=== PATIENT | female | born 1965 | race Caucasian/White ===

== ENCOUNTER 2016-12-09 11:53 | Emergency (ER) | payer OTHER ==
[~2016-12-09] VITALS: Ht 180.3 cm; Wt 120.2 kg
[~2016-12-09 11:53] MED LIST: CLINDAMYCIN HC300 MG PO; NORCO 5-325 TA1 EACH PO; VISTARIL25 M2 PO
[2016-12-09] MEDS ORDERED: NAPROSYN500 MG PO (12:29)
[2016-12-09] MEDS ORDERED: AMOXICILLIN500 M2 PO (12:29)
== END 2016-12-09 13:56 | disposition home or self-care (01) ==
LOC: ED 11:53
DX: K04.7 Periapical abscess without sinus (principal); F17.200 Nicotine dependence, unspecified, uncomplicated; Z98.890 Other specified postprocedural states

== ENCOUNTER 2016-12-11 12:46 | Emergency (ER) | payer OTHER ==
[~2016-12-11] VITALS: Ht 180.3 cm; Wt 117.9 kg
[~2016-12-11 12:46] MED LIST changes: +AMOXICILLIN500 M2 PO; +NAPROSYN500 MG PO
[2016-12-11] MEDS ORDERED: DIFLUCAN150 MG PO (14:11)
[2016-12-11] MEDS ORDERED: PREDNISONE20 M1 PO (14:11)
== END 2016-12-11 14:52 | disposition home or self-care (01) ==
LOC: ED 12:46
DX: B37.3 Candidiasis of vulva and vagina (principal); K08.89 Other specified disorders of teeth and supporting structures; R21 Rash and other nonspecific skin eruption; F17.200 Nicotine dependence, unspecified, uncomplicated

== ENCOUNTER 2017-02-01 19:47 | Emergency (ER) | payer OTHER ==
[~2017-02-01] VITALS: Ht 180.3 cm; Wt 108.9 kg
[~2017-02-01 19:47] MED LIST changes: +DIFLUCAN150 MG PO; +PREDNISONE20 M1 PO
[2017-02-01] MEDS ORDERED: ULTRAM50 MG PO (22:57)
[2017-02-01] MEDS ORDERED: CYCLOBENZAPRINE5 M3 PO (22:57)
== END 2017-02-01 23:43 | disposition home or self-care (01) ==
LOC: ED 19:47
DX: S30.0XXA Contusion of lower back and pelvis, initial encounter (principal); M79.671 Pain in right foot; M79.1 Myalgia; F17.200 Nicotine dependence, unspecified, uncomplicated; W00.2XXA Other fall from one level to another due to ice and snow, initial encounter; Y93.01 Activity, walking, marching and hiking; Y92.524 Gas station as the place of occurrence of the external cause; Y99.8 Other external cause status

== ENCOUNTER 2017-06-01 11:57 | Emergency (ER) | payer OTHER ==
[~2017-06-01] VITALS: Ht 180.3 cm; Wt 113.4 kg
[~2017-06-01 11:57] MED LIST changes: +CYCLOBENZAPRINE5 M3 PO; +ULTRAM50 MG PO
[2017-06-01] MEDS ORDERED: CLARITIN-D 24 H1 TAB PO (12:26)
[2017-06-01] MEDS ORDERED: FLONASE ALLERG9.9 ML NAS (12:26)
== END 2017-06-01 13:16 | disposition home or self-care (01) ==
LOC: ED 11:57
DX: J30.2 Other seasonal allergic rhinitis (principal); Z98.890 Other specified postprocedural states; Z79.899 Other long term (current) drug therapy

== ENCOUNTER 2017-08-17 19:22 | Emergency (ER) | payer OTHER ==
[~2017-08-17] VITALS: Ht 180.3 cm; Wt 117.9 kg
[~2017-08-17 19:22] MED LIST changes: +CLARITIN-D 24 H1 TAB PO; +FLONASE ALLERG9.9 ML NAS
[2017-08-17 20:32] LABS: BASO # 0.1 10*3/uL (0.0-0.1); BASO % 0.8 % (0.0-1.0); EOS # 0.2 10*3/uL (0.0-0.4); EOS % 3.8 % (1.0-4.0); HEMATOCRIT 39.3 % (37.0-47.0); HEMOGLOBIN 13.4 g/dl (12.0-16.0); LYMPH # 2.2 10*3/uL (1.3-4.4); LYMPH % 34.8 % (27.0-41.0); MEAN CELL VOLUME 91.6 fl (81.0-99.0); MEAN CORPUSCULAR HGB 31.2 pg (27.0-31.0); MEAN CORPUSCULAR HGB CONC 34.1 g/dl (33.0-37.0); MEAN PLATELET VOLUME 11.5 fl (9.6-12.3); MONO # 0.4 10*3/uL (0.1-1.0); MONO % 5.5 % (3.0-9.0); NEUT # 3.5 10*3/uL (2.3-7.9); NEUT % 54.9 % (47.0-73.0); PLATELET COUNT AUTOMATED 180 10*3/uL (130-400); RED BLOOD COUNT 4.29 10*6/uL (4.10-5.10); RED CELL DISTRI WIDTH 13.1 % (0-14.5); WHITE BLOOD COUNT 6.3 10*3/uL (4.8-10.8)
[2017-08-17 20:48] LABS: ALBUMIN 3.7 gm/dl (3.1-4.5); ALKALINE PHOSPHATASE 75 U/L (45-117); BUN 16 mg/dl (7-24); CHLORIDE 108 mmol/L (98-107); CREATININE 0.98 mg/dL (0.55-1.02); POTASSIUM 3.8 mmol/L (3.5-5.1); SGOT/AST 10 IU/L (3-35); SGPT/ALT 23 U/L (12-78); SODIUM 141 mmol/L (136-145); TOTAL PROTEIN 7.3 gm/dL (6.4-8.2)
[2017-08-17 20:49] LABS: TROPONIN I < 0.015 ng/ml (<0.045)
== END 2017-08-17 22:35 | disposition home or self-care (01) ==
LOC: ED 19:22
PROVIDERS: Nurse Practitioner Family
DX: R59.9 Enlarged lymph nodes, unspecified (principal); Z98.890 Other specified postprocedural states; Z79.899 Other long term (current) drug therapy